=== PATIENT | female | born 1980 | race Hispanic/Latino ===

== ENCOUNTER 2017-08-27 07:06 | Emergency (ER) | payer SELFPAY | END 2017-08-27 08:10 | disposition home or self-care (01) | LOC: EDH 07:06 | DX: F41.9 Anxiety disorder, unspecified (principal); J11.1 Influenza due to unidentified influenza virus with other respiratory manifestations; Z88.2 Allergy status to sulfonamides; Z88.8 Allergy status to other drugs, medicaments and biological substances; Z90.710 Acquired absence of both cervix and uterus | CPT/HCPCS: 87804 ==

== ENCOUNTER 2017-08-29 11:03 | Emergency (ER) | payer SELFPAY ==
[2017-08-29 11:41] LABS: CREATININE 0.7 mg/dL (0.5-1.5)
[2017-08-29 11:46] LABS: ALBUMIN 4.2 g/dL (3.5-5.0); BASOPHILS % (AUTO) 0.7 % (0.0-5.0); BILIRUBIN,TOTAL 0.3 mg/dL (0.2-1.0); EOSINOPHILS % (AUTO) 7.9 % (0.0-8.0); HEMATOCRIT 44.7 % (36-48); LYMPHOCYTES % (AUTO) 38.8 % (21.0-51.0); MEAN CORPUSCULAR HEMOGLOBIN 30.9 pg (27.0-33.0); MEAN CORPUSCULAR VOLUME 90.9 fL (79-99); NEUTROPHILS % (AUTO) 44.6 % (40.0-77.0); PLATELET COUNT (AUTO) 191 K/uL (130-400); RED BLOOD CELL COUNT(AUTO) 4.92 MIL/uL (4.00-5.50); RED CELL DISTRIBUTION WIDTH 12.6 % (11.0-15.5); TOTAL PROTEIN, SERUM 8.6 g/dL (6.0-8.3)
[2017-08-29 11:46] LABS: APPEARANCE,URINE Clear (CLEAR); BILIRUBIN,URINE Negative (NEGATIVE); COLOR,URINE Yellow (YELLOW); GLUCOSE, URINE (UA) Negative (NEGATIVE); KETONES,URINE Negative (NEGATIVE); LEUKOCYTE ESTERASE ,URINE Negative (NEGATIVE); NITRATE,URINE Negative (NEGATIVE); OCCULT BLOOD,URINE Negative (NEGATIVE); PH,URINE 5.5 (5.0-8.0); PROTEIN,URINE Negative (NEGATIVE); UROBILINOGEN,URINE 0.2 mg/dL (0.2-1.0)
== END 2017-08-29 12:50 | disposition home or self-care (01) ==
LOC: EDH 11:03
DX: J40 Bronchitis, not specified as acute or chronic (principal); R53.1 Weakness; Z88.2 Allergy status to sulfonamides; Z88.8 Allergy status to other drugs, medicaments and biological substances; Z90.710 Acquired absence of both cervix and uterus; Z79.899 Other long term (current) drug therapy
CPT/HCPCS: 36415; 71046; 80053; 81003; 85025; 87804; 96360

== ENCOUNTER 2018-08-20 14:25 | Emergency (ER) | payer SELFPAY | END 2018-08-20 14:43 | disposition home or self-care (01) | LOC: EDH 14:25 | DX: D17.79 Benign lipomatous neoplasm of other sites (principal); M25.511 Pain in right shoulder; Z88.2 Allergy status to sulfonamides; Z88.8 Allergy status to other drugs, medicaments and biological substances; Z90.710 Acquired absence of both cervix and uterus | CPT/HCPCS: 99281 ==

== ENCOUNTER 2019-08-19 08:35 | Emergency (ER) | payer SELFPAY ==
[2019-08-19 09:12] LABS: BASOPHILS % (AUTO) 0.6 % (0.0-5.0); EOSINOPHILS % (AUTO) 1.8 % (0.0-8.0); HEMATOCRIT 37.9 % (36-48); LYMPHOCYTES % (AUTO) 42.2 % (21.0-51.0); MEAN CORPUSCULAR HEMOGLOBIN 30.9 pg (27.0-33.0); MEAN CORPUSCULAR HGB CONC 33.5 g/dL (32.0-36.0); MEAN CORPUSCULAR VOLUME 92.2 fL (79-99); MONOCYTES % (AUTO) 7.2 % (3.0-13.0); NEUTROPHILS % (AUTO) 47.4 % (40.0-77.0); PLATELET COUNT (AUTO) 198 K/uL (130-400); RED BLOOD CELL COUNT(AUTO) 4.11 MIL/uL (4.00-5.50); WHITE BLOOD COUNT (AUTO) 6.2 K/uL (4.8-10.8)
[2019-08-19 09:20] LABS: CREATININE 1.8 mg/dL (0.5-1.5); POTASSIUM 3.5 mmol/L (3.5-5.1)
[2019-08-19 09:25] LABS: ALBUMIN 3.5 g/dL (3.5-5.0); BILIRUBIN,TOTAL 0.4 mg/dL (0.2-1.0)
[2019-08-19] MEDS ORDERED: IOHEXOL-350 75 ML VIAL IV ONE (09:29)
[2019-08-19] MEDS ORDERED: BENZONATATE 100 MG CAPSULE PO ONE (11:42)
== END 2019-08-19 11:55 | disposition home or self-care (01) ==
LOC: EDH 08:35
DX: R05 Cough (principal); Z90.49 Acquired absence of other specified parts of digestive tract; Z90.710 Acquired absence of both cervix and uterus
CPT/HCPCS: 36415; 71045; 74178; 80053; 85025; 87804 ×2; 99285; Q9967

== ENCOUNTER 2021-11-16 05:46 | Emergency (ER) | payer OTHER ==
[~2021-11-16] VITALS: Ht 165.1 cm; Wt 84.8 kg
[2021-11-16] MEDS ORDERED: ONDANSETRON 4MG INJ ONE (06:22)
[2021-11-16] MEDS ORDERED: KETOROLAC 30MG VIAL (30MG/ML) ONE (06:22)
[2021-11-16] MEDS ORDERED: 0.9%NACL 1000ML 1,000 ML IV ONE (06:23)
[2021-11-16 06:42] LABS: BASOPHILS % (AUTO) 0.5 % (0.0-5.0); EOSINOPHILS % (AUTO) 5.6 % (0.0-8.0); HEMATOCRIT 41.3 % (36-48); MEAN CORPUSCULAR HEMOGLOBIN 31.1 pg (27.0-33.0); MEAN CORPUSCULAR HGB CONC 34.1 g/dL (32.0-36.0); MEAN CORPUSCULAR VOLUME 91.2 fL (79-99); MONOCYTES % (AUTO) 7.5 % (3.0-13.0); PLATELET COUNT (AUTO) 193 K/uL (130-400); RED BLOOD CELL COUNT(AUTO) 4.53 MIL/uL (4.00-5.50); RED CELL DISTRIBUTION WIDTH 11.6 % (11.0-15.5); WHITE BLOOD COUNT (AUTO) 5.5 K/uL (4.8-10.8)
[2021-11-16 06:50] LABS: APPEARANCE,URINE Clear (CLEAR); BILIRUBIN,URINE Negative (NEGATIVE); COLOR,URINE Yellow (YELLOW); GLUCOSE, URINE (UA) Negative (NEGATIVE); KETONES,URINE Negative (NEGATIVE); LEUKOCYTE ESTERASE ,URINE Moderate (NEGATIVE); NITRATE,URINE Negative (NEGATIVE); OCCULT BLOOD,URINE Negative (NEGATIVE); PROTEIN,URINE Negative (NEGATIVE); UROBILINOGEN,URINE 0.2 mg/dL (0.2-1.0)
[2021-11-16 06:56] LABS: ALBUMIN 3.5 g/dL (3.5-5.0); BILIRUBIN,TOTAL 0.2 mg/dL (0.2-1.0); CREATININE 0.8 mg/dL (0.5-1.5); POTASSIUM 3.9 mmol/L (3.5-5.1); TOTAL PROTEIN, SERUM 7.1 g/dL (6.0-8.3)
[2021-11-16 07:11] LABS: HCG,QUAL RESULT NEGATIVE (NEGATIVE)
[2021-11-16 07:23] LABS: BACTERIA,URINE Rare /HPF (None Seen); RBC,URINE 0-1 /HPF (0-1); SQUAMOUS EPITHELIAL CELL,UR Few /HPF (0-2); WBC,URINE 0-1 /HPF (0-1)
[2021-11-16 08:01] VITALS: BP 113/76
[2021-11-16] MEDS ORDERED: CEPH500B PO (08:44)
[2021-11-16] MEDS ORDERED: CEFTRIAXONE 1G VIAL ONE (08:56)
[2021-11-16] MEDS ORDERED: CEFTRIAXONE 1G VIAL IVP SCH (09:00)
[2021-11-19] MEDS ORDERED: VALA100031 PO (12:03)
[2021-11-19] MEDS ORDERED: PRED10TA23 PO (12:03)
== END 2021-11-16 09:31 | disposition home or self-care (01) ==
LOC: EDH 05:46
DX: N39.0 Urinary tract infection, site not specified (principal); G43.909 Migraine, unspecified, not intractable, without status migrainosus; Z88.2 Allergy status to sulfonamides; Z88.8 Allergy status to other drugs, medicaments and biological substances; Z98.890 Other specified postprocedural states
CPT/HCPCS: 36415; 74176; 80053; 81001; 81025; 83690; 85025; 87088; 96361; 96374; 96375; 99284; J0696; J1885; J2405; J7030

== ENCOUNTER 2022-03-07 13:28 | Emergency (ER) | payer OTHER ==
[~2022-03-07] VITALS: Ht 165.1 cm; Wt 81.6 kg
[~2022-03-07 13:28] MED LIST: CEPH500B PO; PRED10TA23 PO; VALA100031 PO
[2022-03-07 13:56] LABS: BASOPHILS % (AUTO) 0.6 % (0.0-5.0); EOSINOPHILS % (AUTO) 1.3 % (0.0-8.0); HEMATOCRIT 41.8 % (36-48); LYMPHOCYTES % (AUTO) 32.2 % (21.0-51.0); MEAN CORPUSCULAR HEMOGLOBIN 31.3 pg (27.0-33.0); MEAN CORPUSCULAR VOLUME 92.1 fL (79-99); MONOCYTES % (AUTO) 6.3 % (3.0-13.0); NEUTROPHILS % (AUTO) 59.3 % (40.0-77.0); PLATELET COUNT (AUTO) 222 K/uL (130-400); RED BLOOD CELL COUNT(AUTO) 4.54 MIL/uL (4.00-5.50); RED CELL DISTRIBUTION WIDTH 12.1 % (11.0-15.5); WHITE BLOOD COUNT (AUTO) 6.9 K/uL (4.8-10.8)
[2022-03-07 14:05] LABS: CREATININE 0.8 mg/dL (0.5-1.5); POTASSIUM 4.2 mmol/L (3.5-5.1)
[2022-03-07 14:06] LABS: APPEARANCE,URINE CLEAR (CLEAR); BILIRUBIN,URINE NEGATIVE (NEGATIVE); COLOR,URINE YELLOW (YELLOW); GLUCOSE, URINE (UA) NEGATIVE (NEGATIVE); KETONES,URINE NEGATIVE (NEGATIVE); LEUKOCYTE ESTERASE ,URINE TRACE (NEGATIVE); NITRATE,URINE NEGATIVE (NEGATIVE); OCCULT BLOOD,URINE NEGATIVE (NEGATIVE); PROTEIN,URINE NEGATIVE (NEGATIVE); UROBILINOGEN,URINE 0.2 mg/dL (0.2-1.0)
[2022-03-07 14:10] LABS: ALBUMIN 4.3 g/dL (3.5-5.0); TOTAL PROTEIN, SERUM 7.9 g/dL (6.0-8.3)
[2022-03-07 14:11] LABS: HCG,QUALITATIVE URINE NEGATIVE (NEGATIVE)
[2022-03-07 14:22] LABS: BACTERIA,URINE Few /HPF (None Seen); RBC,URINE 0-1 /HPF (0-1)
[2022-03-07 14:23] LABS: MUCUS,URINE Few LPF (None Seen); SQUAMOUS EPITHELIAL CELL,UR Few /HPF (0-2)
[2022-03-07] MEDS ORDERED: DiphenhydrAMINE HCL 50 MG/ML VIAL IV ONE (15:00)
[2022-03-07] MEDS ORDERED: PROCHLORPERAZINE 10MG/2ML INJ IV ONE (15:00)
[2022-03-07] MEDS ORDERED: 0.9%NACL 1000ML 1,000 ML IV ONE (15:00)
[2022-03-07 15:03] LABS: INR 0.93 (0.85-1.15)
[2022-03-07 15:04] LABS: PARTIAL THROMBOPLASTIN TIME 27.5 SEC (26.3-35.5)
[2022-03-07 16:58] VITALS: BP 128/72
[2022-03-07] MEDS ORDERED: KETOROLAC 15MG/ML VIAL (15MG/ML) IV ONE (17:30)
[2022-03-07] MEDS ORDERED: ACET-66 PO (17:34)
== END 2022-03-07 18:10 | disposition home or self-care (01) ==
LOC: EDH 13:28
DX: G43.909 Migraine, unspecified, not intractable, without status migrainosus (principal); R00.2 Palpitations; H11.32 Conjunctival hemorrhage, left eye; M25.521 Pain in right elbow; Z79.52 Long term (current) use of systemic steroids; Z87.440 Personal history of urinary (tract) infections; Z88.2 Allergy status to sulfonamides
CPT/HCPCS: 99285; 96374; 70450; 96375; 84484; 80053; 85025; 85610; 85730; 81001; 81025; 36415; 73080; 93005; J1200; J7030; J0780; J1885

== ENCOUNTER → 2023-04-06 | Outpatient (CLI) | payer OTHER ==
[~2023-04-06] MED LIST changes: +ACET-66 PO; +IOHEXOL-350 75 ML VIAL IV ONE
== END | disposition home or self-care (01) ==
LOC: RAH 10:34
PROVIDERS: ATTEND Surgery
DX: K57.30 Diverticulosis of large intestine without perforation or abscess without bleeding (principal); R10.32 Left lower quadrant pain
CPT/HCPCS: 74178; Q9967

== ENCOUNTER 2023-05-29 07:59 | Day surgery (SDC) | payer OTHER ==
[2023-05-22 14:19] LABS: BASOPHILS # (AUTO) 0.03 K/uL (0.00-0.20); BASOPHILS % (AUTO) 0.6 % (0.0-5.0); EOSINOPHILS # (AUTO) 0.16 K/uL (0.00-0.70); HEMATOCRIT 44.1 % (36-48); IMMATURE GRANULOCYTE ABSOLUTE 0.02 K/uL (0-1); LYMPHOCYTES # (AUTO) 1.6 K/uL (1.0-4.8); LYMPHOCYTES % (AUTO) 29.2 % (21.0-51.0); MEAN CORPUSCULAR HEMOGLOBIN 31.2 pg (27.0-33.0); MEAN CORPUSCULAR HGB CONC 34.2 g/dL (32.0-36.0); MEAN CORPUSCULAR VOLUME 91.1 fL (79-99); MONOCYTES # (AUTO) 0.3 K/uL (0.1-1.0); NEUTROPHILS # (AUTO) 3.3 K/uL (1.8-7.7); NEUTROPHILS % (AUTO) 61.8 % (40.0-77.0); PLATELET COUNT (AUTO) 225 K/uL (130-400); RED BLOOD CELL COUNT(AUTO) 4.84 MIL/uL (4.00-5.50); RED CELL DISTRIBUTION WIDTH 11.7 % (11.0-15.5); WHITE BLOOD COUNT (AUTO) 5.4 K/uL (4.8-10.8)
[2023-05-22 14:21] VITALS: BP 131/81; PULSE 60; RESP 14
[2023-05-22 14:38] LABS: ALBUMIN 4.3 g/dL (3.5-5.0); BILIRUBIN,TOTAL 0.5 mg/dL (0.2-1.0); CREATININE 0.7 mg/dL (0.5-1.5); POTASSIUM 4.1 mmol/L (3.5-5.1)
[~2023-05-29] VITALS: Ht 165.1 cm; Wt 88.0 kg
[2023-05-29] VITALS (18 sets, daily range): BP systolic 117–149; BP diastolic 70–87; PULSE 52–84; RESP 9–18
[~2023-05-29 07:59] MED LIST changes: -IOHEXOL-350 75 ML VIAL IV ONE
[2023-05-29] MEDS ORDERED: LACTATED RINGERS 1000ML 1,000 ML IV ONE (08:53)
[2023-05-29] MEDS ORDERED: CEFAZOLIN SODIUM 2 GM VIAL ONE (08:53)
[2023-05-29] MEDS ORDERED: IOHEXOL-350 50ML VIAL IV ONE (08:55)
[2023-05-29] MEDS ORDERED: ALBUTEROL INHALER 90MCG/INH IH ONE (09:16)
[2023-05-29] MEDS ORDERED: BUPIVACAINE/PF 0.25% 30ML VIAL IJ ONE ×2 (09:21→09:54)
[2023-05-29] MEDS ORDERED: LIDOCAINE PF 100MG/5ML (2%) SYRINGE 5ML ONE (09:31)
[2023-05-29] MEDS ORDERED: SUCCINYLCHOLINE 200MG/10ML SYR ONE (09:31)
[2023-05-29] MEDS ORDERED: GLYCOPYRROLATE 1 MG/5 ML SYRINGE ONE (09:32)
[2023-05-29] MEDS ORDERED: MIDAZOLAM HCL 1 MG/ML 2ML VIAL ONE (09:32)
[2023-05-29] MEDS ORDERED: ROCURONIUM 10MG/1ML SYR 10 MG/ML ML ONE (09:32)
[2023-05-29] MEDS ORDERED: FENTANYL CITRATE PF 50 MCG/1 ML 2ML VIAL ONE ×3 (09:32→11:33)
[2023-05-29] MEDS ORDERED: ONDANSETRON 4MG INJ ONE ×2 (09:32→11:03)
[2023-05-29] MEDS ORDERED: PROPOFOL 10 MG/ML 20ML VIAL IV ONE (09:32)
[2023-05-29] MEDS ORDERED: CEFAZOLIN SODIUM 2 GM VIAL IVPB ONE (09:52)
[2023-05-29] MEDS ORDERED: NEOSTIGMINE METHYLSULFATE 1MG/ML IV ONE (10:36)
[2023-05-29] MEDS ORDERED: MEPERIDINE-PF 25 MG/ML SYG ONE ×2 (11:03→11:20)
[2023-05-29] MEDS ORDERED: ROSU10TA28 PO (12:04)
[2023-05-29] MEDS ORDERED: DIVA250T4 PO (12:04)
[2023-05-29] MEDS ORDERED: FLUT16H NASAL (12:04)
[2023-05-29] MEDS ORDERED: RIME75TA PO (12:04)
[2023-05-29] MEDS ORDERED: ALLO100T PO (12:04)
[2023-05-29] MEDS ORDERED: LINA145C PO (12:04)
[2023-05-29] MEDS ORDERED: LEVO5TAB13 PO (12:04)
[2023-05-29] MEDS ORDERED: NAPR-1023 PO (12:04)
== END 2023-05-29 12:59 | disposition home or self-care (01) ==
LOC: DAH 07:59
PROVIDERS: ATTEND Surgery
DX: K80.44 Calculus of bile duct with chronic cholecystitis without obstruction (principal); K82.8 Other specified diseases of gallbladder; K76.0 Fatty (change of) liver, not elsewhere classified; I25.2 Old myocardial infarction; G43.909 Migraine, unspecified, not intractable, without status migrainosus; Z79.01 Long term (current) use of anticoagulants; Z79.899 Other long term (current) drug therapy; Z86.73 Personal history of transient ischemic attack (TIA), and cerebral infarction without residual deficits; Z88.2 Allergy status to sulfonamides; Z86.010 Personal history of colon polyps; Z90.710 Acquired absence of both cervix and uterus; Z80.0 Family history of malignant neoplasm of digestive organs
CPT/HCPCS: 80053; 85025; 86850 ×2; 86900 ×2; 86901 ×2; 36415 ×2; 93005; 47563; 88304; 74300; A6260; A4600; A4663; J7030; A4215 ×2; C1758; J7120; J3010 ×3; J0330; J3490; J0665 ×2; J2001; J2250; J2704; J2405 ×2; J2710; J2175 ×2; Q9967; J0690 ×2; C1769 ×3; G0168; A4649 ×2; A4930; A4223; A4222; A4221